=== PATIENT | female | born 1955 | race Caucasian/White ===

== ENCOUNTER 2021-08-18 14:47 | Outpatient (REF) | payer MEDICARE, MEDICAID, SELFPAY ==
--- NOTE | ~2021-08-18 | MM_ITS ---
EXAMINATION: BONE DENSITOMETRY CLINICAL INDICATION: Asymptomatic menopausal state. COMPARISON: Baseline BD dated 07/14/2011. TECHNIQUE: Using a [employer] DXA System (software version: 13.1) manufactured by [employer], dual-energy x-ray absorptiometry was performed of the spine and left hip. The images are of good technical quality. Summary results are attached. FINDINGS: AP SPINE L1-L4: Current: BMD 1.120 g/cm2, Z-score 0.9, T-score -0.5, normal, 6.3% decrease from baseline (<5% change is not significant). Baseline: BMD 1.195 g/cm2. LEFT FEMUR, NECK: Current: BMD 0.874 g/cm2, Z-score 0.2, T-score -1.2, osteopenia. Baseline: BMD 0.851 g/cm2. LEFT FEMUR, TOTAL: Current: BMD 0.939 g/cm2, Z-score 0.6, T-score -0.5, normal, 1.1% increase from baseline (<5% change is not significant). Baseline: BMD 0.929 g/cm2. IDENTIFIED RISK FACTORS: Rheumatoid arthritis, low calcium intake, menopause. HISTORY OF FRACTURE: None listed. MEDICATIONS: Calcium supplements or multivitamin, vitamin D. MM/XR DEXA axial skeleton IMPRESSION: 1. DIAGNOSIS: Osteopenia based on the lowest T-score value of -1.2 in the femoral neck applying World Health Organization criteria. 2. 10-YEAR FRACTURE RISK PREDICTION, FRAX: Major osteoporotic fracture (clinical spine, forearm, hip or shoulder) 6.1%. Hip fracture 0.6%. 3. Treatment Recommendations: NOF guidelines recommend consideration for treatment in postmenopausal women and men age 50 and older presenting with the following: -A hip or vertebral (clinical or morphometric) fracture. -T-score less than or equal to -2.5 at the femoral neck or spine after appropriate evaluation to exclude secondary causes. -Low bone mass at the hip or spine and a 10-year fracture probability by FRAX of greater than or equal to 3% for hip fracture or greater than or equal to 20% for major osteoporotic fracture based on the [place] adapted WHO algorithm. 4. Other Recommendations: All treatment decisions require clinical judgment and consideration of individual patient factors, including patient preferences, comorbidities, previous drug use, risk factors not captured in the FRAX model (e.g. frailty, falls, vitamin D deficiency, increased bone turnover, interval significant decline in bone density) and possible under or overestimation of fracture risk by FRAX. Additional medical evaluation for secondary cause of low bone mineral density may be appropriate. FUTURE SCAN RECOMMENDATION: People with diagnosed cases of osteoporosis or at high risk for fracture should have regular bone mineral density tests. For patients eligible for Medicare, routine testing is allowed once every 2 years. The testing frequency can be increased to one year for patients who have rapidly progressing disease, those who are receiving or discontinuing medical therapy to restore bone mass, or have additional risk factors.
--- NOTE | ~2021-08-18 | MM_ITS ---
EXAMINATION: MM SCREENING DIGITAL BREAST TOMOSYNTHESIS, BILATERAL CLINICAL INFORMATION: Screening. Asymptomatic. The lifetime risk of breast cancer based on the Tyrer-Cuzick Model is 3.9%. COMPARISON: Mammography: November 04, 2019 and studies dating back to July 14, 2011 TECHNIQUE: Digital breast tomosynthesis is performed in both the craniocaudal and mediolateral oblique views along with computer-aided detection (CAD). Synthesized 2D images are generated from the tomosynthesis. FINDINGS: The breasts are heterogeneously dense, which may obscure small masses (ACR BI-RADS breast composition Category c). There are no significant masses, abnormal calcifications, or other abnormalities. MM/MM tomosynthesis screening BI IMPRESSION: There are no significant changes from prior study. ASSESSMENT: BI-RADS 1: Negative RECOMMENDATION: Routine annual mammography screening. This patient's information was entered into a reminder system with a target due date for their next mammogram.
== END 2021-08-18 14:48 | disposition home or self-care (01) ==
LOC: HO.MAMMO 14:47
PROVIDERS: PCP Nurse Practitioner Family; Visit Provider Nurse Practitioner Family
DX: Z12.31 Encounter for screening mammogram for malignant neoplasm of breast (principal); Z13.820 Encounter for screening for osteoporosis; M06.9 Rheumatoid arthritis, unspecified; Z78.0 Asymptomatic menopausal state
CPT/HCPCS: 77063; 77067; 77080

== ENCOUNTER 2022-09-28 15:50 | Outpatient (REF) | payer MEDICARE, MEDICAID, SELFPAY ==
[2022-09-28 17:17] LABS: MANUAL DIFF FLAG NO
[2022-09-28 17:39] LABS: Alanine Aminotransferase 34 U/L (0-31); Albumin Level 4.1 g/dL (3.5-5.0); Alkaline Phosphatase 99 U/L (39-117); Anion Gap 12 (12-20); Aspartate Amino Transferase 25 U/L (5-31); Blood Urea Nitrogen 12 mg/dL (9-16); Calcium 9.7 mg/dL (8.4-10.2); Carbon Dioxide 24 mmol/L (22-29); Chloride 109 mmol/L (96-108); Cholesterol 240 mg/dL; Estimated Glomerular Filt Rate > 60; Glucose Random 98 mg/dL (60-115); HDL Cholesterol 57 mg/dL; LDL Cholesterol Calculated 153 mg/dl; Potassium 4.1 mmol/L (3.3-5.1); Sodium 141 mmol/L (135-145); Total Protein 7.6 g/dL (6.5-8.0); Triglycerides 151 mg/dL
[2022-09-28 17:51] LABS: Basophils Percent Auto 0.1 % (0-2); Eosinophils Absolute Auto 0.2 X10*3/uL (0.0-0.4); Eosinophils Percent Auto 2.1 % (0-4); Hematocrit 47.6 % (37.0-47.0); Hemoglobin 15.7 g/dl (12.0-16.0); Imm Gran Abs Auto 0.06 X10*3/uL (0.00-0.03); Imm Gran Pct Auto 0.8 % (0.0-0.4); Lymphocytes Absolute Auto 2.1 X10*3/uL (1.2-4.9); Lymphocytes Percent Auto 27.4 % (20-40); Mean Corpuscular Hemoglobin 30.2 pg (27.0-33.0); Mean Corpuscular Volume 91.5 fL (80.0-98.0); Mean Platelet Volume 11.7 fL (9.4-12.3); Monocytes Absolute Auto 0.7 X10*3/uL (0.1-1.2); Monocytes Percent Auto 8.7 % (2-11); Neutrophils Absolute Auto 4.7 x10*3/uL (2.0-8.3); Neutrophils Percent Auto 60.9 % (45-73); Platelet Count 223 X10*3/uL (160-400); Red Cell Distribution Width 13.1 % (11.0-16.0); White Blood Count 7.7 X10*3/uL (4.8-10.8)
[2022-09-28 17:54] LABS: Estimated Average Glucose 105 mg/dL; Hemoglobin A1c % 5.3 %
== END 2022-09-28 15:51 | disposition home or self-care (01) ==
LOC: HO.HHCL 15:50
PROVIDERS: Visit Provider Registered Nurse
DX: Z00.00 Encounter for general adult medical examination without abnormal findings (principal); E55.9 Vitamin D deficiency, unspecified; E66.9 Obesity, unspecified
CPT/HCPCS: 36415; 80053; 80061; 83036; 85025

== ENCOUNTER 2024-12-19 15:25 | Outpatient (REF) | payer MEDICARE, MEDICAID, SELFPAY | END 2024-12-19 15:26 | disposition home or self-care (01) | LOC: HO.MAMMO 15:25 | PROVIDERS: PCP General Practice; Visit Provider General Practice | DX: Z12.31 Encounter for screening mammogram for malignant neoplasm of breast (principal) | CPT/HCPCS: 77063; 77067 ==

== ENCOUNTER → 2024-12-19 15:45 | Outpatient (BNV) | payer MEDICARE, MEDICAID, SELFPAY | PROVIDERS: PCP General Practice; Visit Provider Radiology Body Imaging | DX: Z12.31 Encounter for screening mammogram for malignant neoplasm of breast (principal) | CPT/HCPCS: 77063; 77067 ==

== ENCOUNTER 2025-01-08 15:34 | Outpatient (REF) | payer MEDICARE, MEDICAID, SELFPAY ==
--- OUTSIDE RECORDS SUMMARY | 2025-01-05 15:45 | XMS_ITS | Encounter Summary ---
Author Organization [employer] Address [address] [place] [address] [address] [place] [address] Care Team Providers Care Acute Dialysis Registered Nurse Name Role Phone Althea Garvey MD Primary Care Provider [phone] Reason for Referral * Consultation (Routine) - Authorized Specialty Diagnoses / Procedures Referred By Leticia pabon Referred To Contact Family Medicine Diagnoses Neoplasm, uncertain whether benign or malignant Althea Garvey MD [address] [place] [phone] Phone: tel: fax: Referral ID Status Reason Start Date Expiration Date Visits Requested Visits Authorized [id number] Authorized Specialty Services Required 01/07/2026 1 1 Reason for Visit * Reason Comments Follow-up Encounter Details Date Type Department Care Team (Late st Contact Info) Description 01/05/2025 3:45 PM EDT Office Visit [facility] [address] [place], [place] [phone] Althea Garvey MD [address] [place] [phone] Primary hypertension (Primary Dx); Other hyperlipidemia; Screening for colon cancer; Vitamin D deficiency; Class 1 obesity due to excess calories with serious comorbidity and body mass index (BMI) of 31.0 to 31.9 in adult; Osteopenia of multiple sites; Primary insomnia; Neoplasm, uncertain whether benign or malignant Social History Tobacco Use Types Packs/Day Years Used Date Smoking Tobacco: Never Passive Smoke Exposure: Never Smokeless Tobacco: Never Depression Answer Date Recorded Patient Health Questionnaire-9 Score 2 03/24/2024 Patient Health Questionnaire-9 Score 2 03/24/2024 Last PHQ-9: Questionnaire Data Not on file 0 03/24/2024 Housing Stability Answer Date Recorded What is your housing situation today? I have alison norton 03/24/[address] you li ve. Do you have problems with any of the following? None of the above 03/24/2024 Food Insecurity Answer Date Recorded Within the past 12 months, y ou worried that your food would run out before you got money to buy more: Never True 03/24/2024 Within the past 12 months,th e food you bought just didn't last and you didn't have enough money to get more: Not on file Transportation Answer Date Recorded In the past 12 months, has l ack of transportation kept you from medical appts, meetings, work or from getting things needed for daily living? No 03/24/2024 Utilities Answer Date Recorded In the past 12 months, has t he electric, gas, oil or water company threatened to shut off services in your home? No 03/24/2024 Depression Answer Date Recorded Patient Health Questionnaire-2 Score 0 03/24/2024 Internet Access Answer Date Recorded Internet Access Q1 Yes 03/24/2024 Internet Access Q2 Not on file 03/24/2024 Comments Unknown Sex and Gender Information Value Date Recorded Sex Assigned at Female 01/09/2022 10:17 AM EDT Legal Sex Female 10:17 AM EDT Gender Identity Female 01/09/2022 10:17 AM EDT Sexual Orientation Straight 01/09/2022 10 :17 AM EDT documented as of this encounter Last Filed Vital Signs Vital Sign Reading Time Taken Comments Blood Pressure 140/80 01/05/2025 4:09 PM EDT Pulse 88 01/05/2025 4:09 PM EDT Temperature 36.3 C (97.4 F) 01/05/2025 4:09 PM EDT Respiratory Rate 20 01/05/2025 4:09 PM EDT Oxygen Saturation 98% 01/05/2025 4:09 PM EDT Inhaled Oxygen Concentration - - Weight 75 kg (165 lb 6.4 oz) 01/05/2025 4:09 PM EDT Height 154.9 cm (5' 1 ) 01/05/2025 4:09 PM EDT Body Mass Index 31.25 01/05/2025 4:09 PM EDT documented in this encounter Progress Notes * Alhtea Garvey MD - 01/05/2025 3:45 PM EDT SUBJECTIVE: Angela Sánchez is a 69 y.o. female who presents for chronic disease management. Denies recent illness, ER visit, or hospitalization. Acute Concerns: Moved into 2 bedroom apt and is feeling very good there Refer for midback excision of skin lesion Chronic Conditions and Plans: HTN On Olmesartan 20mg daily BPs at home <140/90 asymtpatomatic Allergies Takes Claritin 10mg daily Has Ketotifen and Flonase as well Allergic to pollen and trees Insomnia Melatonin 5-10mg nightly prn Vit D def On daily repletion Health maintenance: Imms: PCV20, Dtap, COVID Pap Smear: 08/24/2021, NILM HPV neg. No further screening necessary Mammogram: 08/18/21 BIRADS 1; 12/2024 Mammo Birads 0: Additional Imaging required This examination should not preclude the clinical evaluation of a suspicious palpable abnormality. BMD: Performed 08/18/21. DIAGNOSIS: Osteopenia based on the lowest T-score value of -1.2 in the femoral neck applying World Health Organization criteria. Taking Calcium + Vit D. Colonoscopy: No records, needs colon cancer screening. Cologuard ordered _01/07/25) Lung cancer: Never smoker Eye: [employer] vision Dental: [facility] dental Patient Active Problem List Diagnosis Date Noted Primary hypertension 01/07/2025 Health care maintenance 09/28/2022 Primary insomnia 03/09/2022 Environmental and seasonal allergies 06/04/2018 Class 1 obesity due to excess calories with serious comorbidity and body mass index (BMI) of 31.0 to 31.9 in adult 06/04/2018 Vitamin D deficiency 01/19/2017 Hyperlipidemia 09/19/2013 Osteopenia 07/08/2012 Surgical History[1] Social History Social History Narrative Not on file Review of Systems Constitutional: Negative. Respiratory: Negative. Cardiovascular: Negative. Gastrointestinal: Negative. Musculoskeletal: Negative. Skin: Positive for rash. OBJECTIVE: Vitals: 01/05/25 1551 01/05/25 1609 BP: 136/75 (!) 140/80 BP Location: Left arm Patient Position: Sitting BP Cuff Size: Large adult Pulse: 88 Resp: 20 Temp: 97.4 ??F (36.3 ??C) TempSrc: Oral SpO2: 98% Weight: 165 lb 6.4 oz (75 kg) Height: 5' 1 (1.549 m) Physical Exam Vitals and nursing note reviewed. Constitutional: Appearance: Normal appearance. HENT: Head: Normocephalic and atraumatic. Cardiovascular: Rate and Rhythm: Normal rate and regular rhythm. Pulses: Normal pulses. Heart sounds: Normal heart sounds. Pulmonary: Effort: Pulmonary effort is normal. Breath sounds: Normal breath sounds. Skin: General: Skin is warm and dry. Comments: 2 cm raised plaque with irregular borders and varigated color on midback with warty supralesions Neurological: General: No focal deficit present. Mental Status: She is alert and oriented to person, place, and time. Psychiatric: Mood and Affect: Mood normal. Behavior: Behavior normal. ASSESSMENT/PLAN Problem List Items Addressed This Visit Hyperlipidemia Class 1 obesity due to excess calories with serious comorbidity and body mass index (BMI) of 31.0 to 31.9 in adult Relevant Orders Comprehensive Metabolic Panel Lipid Panel, Standard CBC auto differential Osteopenia Primary insomnia Vitamin D deficiency Primary hypertension - Primary Current Assessment & Plan Maintenance: Olmesartan 20mg BMP: Lab Results Component Value Date CREATININE 0.79 09/28/2022 Lipid Panel: Lab Results Component Value Date CHOL 240 09/28/2022 Lab Results Component Value Date HDL 57 09/28/2022 No results found for: LDLCALC Lab Results Component Value Date TRIG 151 09/28/2022 No results found for: CHOLHDL ASCVD Risk: Calculate pending updated labs EKG: Obtain baseline at f/u - Aerobic exercise to reduce BP. Initial goal of 30 min walk 3-5x/week. Increase as tolerated. - low-sodium diet (goal: <2g/day) and heart healthy diet such as DASH to reduce BP and prevent ASCVD. - Home BP monitoring 1-2 x day with goal of <140/90. - Seek immediate medical attention for chest pain, palpitations, SOB, syncope, or sudden changes inmental status. - Do not change or discontinue current prescriptions without first consulting health care provider Other Visit Diagnoses Screening for colon cancer Relevant Orders Cologuard?? colon cancer screening Neoplasm, uncertain whether benign or malignant Relevant Orders Referral to [facility] Derm Skin Adult Follow Up: 6 months or sooner prn Allergies[2] Current Medications[3] French Translation: Provided by [facility] staff member ADWOA Rodriguez [1] History reviewed. No pertinent surgical history. [2] Allergies Allergen Reactions Garlic [3] Current Outpatient Medications: acetaminophen (Tylenol) 500 MG tablet, Take 1 tablet by mouth every 4 (four) hours., Disp: , Rfl: Calcium Carb-Cholecalciferol 600-10 MG-MCG tablet, Take 1 tablet by mouth 2 times daily., Disp: 180tablet, Rfl: 3 chlorhexidine (Peridex) 0.12 % solution, Place 15 mL into mouth between cheek and gum every 12 (twelve) hours., Disp: , Rfl: fluticasone (Flonase) 50 MCG/ACT nasal spray, Administer 1 spray into each nostril Once per day., Disp: 16 g, Rfl: 11 Ketotifen Fumarate 0.035 % solution, Administer 1 drop into affected eye(s) every 12 (twelve) hours., Disp: 10 mL, Rfl: 3 loratadine (Claritin) 10 MG tablet, TAKE 1 TABLET BY MOUTH AT BEDTIME IF NEEDED FOR ALLERGIES, Disp: 90 tablet, Rfl: 3 melatonin 5 MG tablet, TAKE 1 TABLET BY MOUTH AT BEDTIME, MAY TAKE 2 TABLETS IF NEEDED. TAKE 30 TO 90 MINUTES PRIOR TO BEDTIME., Disp: 180 tablet, Rfl: 3 olmesartan (Benicar) 20 MG tablet, Take 1 tablet (20 mg) by mouth Once per day., Disp: 90 tablet, Rfl: 3 documented in this encounter Miscellaneous Notes * Assessment & Plan Note - Althea Garvey MD - 01/07/2025 10:43 AM EDT Associated Problem(s): Primary hypertension Maintenance: Olmesartan 20mg BMP: Lab Results Component Value Date CREATININE 0.79 09/28/2022 Lipid Panel: Lab Results Component Value Date CHOL 240 09/28/2022 Lab Results Component Value Date HDL 57 09/28/2022 No results found for: LDLCALC Lab Results Component Value Date TRIG 151 09/28/2022 No results found for: CHOLHDL ASCVD Risk: Calculate pending updated labs EKG: Obtain baseline at f/u - Aerobic exercise to reduce BP. Initial goal of 30 min walk 3-5x/week. Increase as tolerated. - low-sodium diet (goal: <2g/day) and heart healthy diet such as DASH to reduce BP and prevent ASCVD. - Home BP monitoring 1-2 x day with goal of <140/90. - Seek immediate medical attention for chest pain, palpitations, SOB, syncope, or sudden changes inmental status. - Do not change or discontinue current prescriptions without first consulting health care provider documented in this encounter Plan of Treatment Scheduled Orders Name Type Priority Associated Diagnoses Orde r Schedule Comprehensive Metabolic Panel Lab Routine Class 1 obesity due to excess calories with serious comorbidity and body mass index (BMI) of 31.0 to 31.9 in adult Expected: 01/05/2025 (Approximate), Expires: 01/05/2026 Lipid Panel, Standard Lab Routine Class 1 obesity due to excess calories with serious comorbidity and body mass index (BMI) of 31.0 to 31.9 in adult Expected: 01/05/2025 (Approximate), Expires: 01/05/2026 Cologuard colon cancer screening Lab Routine Screening for colon cancer Ordered: 01/07/2025 Scheduled Referrals Name Type Priority Associated Diagnoses Orde r Schedule Referral to [facility] Derm Skin Adult Outpatient Referral Routine Neoplasm, uncertain whether benign or malignant Expected: 01/07/2025 (Approximate), Expires: 01/07/2026 documented as of this encounter Procedures Procedure Name Priority Date/Time Associated Diagnosis Comments CBC WITH AUTO DIFFERENTIAL Routine 01/08/2025 1:39 PM EDT Class 1 obesity due to excess calories with serious comorbidity and body mass index (BMI) of 31.0 to 31.9 in adult documented in this encounter Results * (ABNORMAL) CBC auto differential (01/08/2025 1:39 PM EDT) White Blood Count 7.4 4.8 - 10.8 X10*3/uL [facility] Red Blood Count 4.82 4.20 - 5.50 X10*6/uL [facility] Hemoglobin 14.3 12.0 - 16.0 g/dl [facility] Hematocrit 43.9 37.0 - 47.0 % [facility] Mean Corpuscular Volume 91.1 80.0 - 98.0 fL [facility] Mean Corpuscular Hemoglobin 29.7 27.0 - 33.0 pg [facility] Mean Corpuscular HGB Conc 32.6 31.0 - 35.0 g/dl [facility] Red Cell Distribution Width 13.0 11.0 - 16.0 % [facility] Platelet Count 213 160 - 400 X10*3/uL [facility] Mean Platelet Volume 11.4 9.4 - 12.3 fL [facility] Neutrophils Percent Auto 44.3(L) 45 - 73 % [facility] Imm Gran Pct Auto 0.3 0.0 - 0.4 % [facility] Lymphocytes Percent Auto 43.7(H) 20 - 40 % [facility] Monocytes Percent Auto 8.7 2 - 11 % [facility] Eosinophils Percent Auto 2.6 0 - 4 % [facility] Basophils Percent Auto 0.4 0 - 2 % [facility] NRBC Pct Auto 0.0 0.0 - 0.2 /100WBC [facility] Neutrophils Absolute Auto 3.3 2.0 - 8.3 x10*3/uL [facility] Imm Gran Abs Auto 0.02 0.00 - 0.03 X10*3/uL [facility] Lymphocytes Absolute Auto 3.2 1.2 - 4.9 X10*3/uL [facility] Monocytes Absolute Auto 0.6 0.1 - 1.2 X10*3/uL [facility] Eosinophils Absolute Auto 0.2 0.0 - 0.4 X10*3/uL [facility] Basophils Absolute Auto 0.0 0.0 - 0.2 X10*3/uL [facility] NRBC Abs Auto 0.000 0.0 - 0.012 X10*3/uL [facility] Blood Venous blood specimen / Unknown 01/08/2025 1:39 PM EDT 01/08/2025 4:07 PM EDT Althea Garvey MD LAB BLOOD ORDERABLES Final Res ult [facility] [address] [place] [phone] documented in this encounter Visit Diagnoses Diagnosis Primary hypertension- Primary Unspecified essential hypertension Other hyperlipidemia Screening for colon cancer Special screening for malignant neoplasms, colon Vitamin D deficiency Class 1 obesity due to excess calories with serious comorbidity and body mass index (BMI) of 31.0 to 31.9 in adult Osteopenia of multiple sites Primary insomnia Persistent disorder of initiating or maintaining sleep Neoplasm, uncertain whether benign or malignant documented in this encounter Additional Health Concerns Assessment Noted Time PHQ-9 Depression Total Score: 2 03/24/19 25 1:18 PM EST documented as of this encounter Care Teams Acute Dialysis Registered Nurse Relationship Specialty Start Date End Date Althea Garvey MD [address] [place] [phone] PCP - General Family Medicine 12/19/22 documented as of this encounter
[2025-01-08 16:15] LABS: MANUAL DIFF FLAG NO
[2025-01-08 16:19] LABS: Hematocrit 43.9 % (37.0-47.0); Hemoglobin 14.3 g/dl (12.0-16.0); Imm Gran Abs Auto 0.02 X10*3/uL (0.00-0.03); Imm Gran Pct Auto 0.3 % (0.0-0.4); Lymphocytes Absolute Auto 3.2 X10*3/uL (1.2-4.9); Mean Corpuscular HGB Conc 32.6 g/dl (31.0-35.0); Mean Corpuscular Hemoglobin 29.7 pg (27.0-33.0); Mean Corpuscular Volume 91.1 fL (80.0-98.0); NRBC Abs Auto 0.000 X10*3/uL (0.0-0.012); NRBC Pct Auto 0.0 /100WBC (0.0-0.2); Platelet Count 213 X10*3/uL (160-400); Red Blood Count 4.82 X10*6/uL (4.20-5.50); White Blood Count 7.4 X10*3/uL (4.8-10.8)
--- OUTSIDE RECORDS SUMMARY | 2025-01-08 18:03 | XMS_ITS | Clinical Summary ---
Author Organization [employer] Address [address] [facility] 7t [place] [address] Care Team Providers Care Equine Dentist Name Role Phone Althea Garvey MD Primary Care Provider [phone] Allergies Active Allergy Reactions Criticality Noted Date Comments Garlic 03/09/2022 Medications chlorhexidine (Peridex) 0.12 % solution Place 15 mL into mouth between cheek and gum every 12 (twelve) hours. 1 Active acetaminophen (Tylenol) 500 MG tablet Take 1 tablet by mouth every 4 (four) hours. 1 Active olmesartan (Benicar) 20 MG tabletIndications :Elevated blood-pressure reading without diagnosis of hypertension Take 1 tablet (20 mg) by mouth Once per day. 90 tablet 3 5 03/24/19 26 Active loratadine (Claritin) 10 MG tabletIndications :Environmental and seasonal allergies TAKE 1 TABLET BY MOUTH AT BEDTIME IF NEEDED FOR ALLERGIES 90 tablet 3 5 Active melatonin 5 MG tabletIndications :Primary insomnia TAKE 1 TABLET BY MOUTH AT BEDTIME, MAY TAKE 2 TABLETS IF NEEDED. TAKE 30 TO 90 MINUTES PRIOR TO BEDTIME. 180 tablet 3 5 Active Ketotifen Fumarate 0.035 % solution Administer 1 drop into affected eye(s) every 12 (twelve) hours. 10 mL 3 5 Active Calcium Carb-Cholecalcife rol 600-10 MG-MCG tablet Take 1 tablet by mouth 2 times daily. 180 tablet 3 5 Active fluticasone (Flonase) 50 MCG/ACT nasal spray Administer 1 spray into each nostril Once per day. 16 g 11 5 Active Active Problems Problem Noted Date Diagnosed Date Primary hypertension 01/07/2025 Assessment & Plan (01/07/2025 10:43 AM EDT): Maintenance: Olmesartan 20mg BMP: Lab Results Component [...] pain, palpitations, SOB, syncope, or sudden changes in mental status. - Do not change or discontinue current prescriptions without first consulting health care provider Health care maintenance 09/28/2022 Overview (10/06/2022): Routine Health Maintenance: Immunizations: Due shingles #2 vaccine, Hep B booster dose 1 HIV: Nonreactive 08/24/21 Hep C: Nonreactive 08/24/21 Hepatitis B: Nonreactive surface antibodies 08/24/21. Recommend booster vaccine series Pap Smear: 08/24/2021, NILM HPV neg. No further screening necessary Mammogram: 08/18/21 BIRADS 1, annual screening. Needs 2022 imaging BMD: Performed 08/18/21. DIAGNOSIS: Osteopenia based on the lowest T-score value of -1.2 in the femoral neck applying World Health Organization criteria. Taking Calcium + Vit D. Refill sent. Continue supplement Colonoscopy: No records, needs colon cancer screening. Discuss at f/u Lung cancer: Never smoker Eye: 2 years ago [facility] Dental: [facility] dental Primary insomnia 03/09/2022 Environmental and seasonal allergies 06/04/2018 Class 1 obesity due to exces s calories with serious comorbidity and body mass index (BMI) of 31.0 to 31.9 in adult 06/04/2018 Vitamin D deficiency 01/19/2017 Hyperlipidemia 09/19/2013 Osteopenia 07/08/2012 Resolved Problems Problem Noted Date Diagnosed Date Resolved Date Elevated blood-pressure read ing without diagnosis of hypertension 06/04/2018 01/07/2025 Overview (10/06/2022): BP was 142/97. Recheck close to first measurement BP also elevated 06/13/22 Assessment & Plan (10/06/2022 12:19 AM EDT): BP was 142/97. Recheck close to first measurement, 138/102 Will Rx Olmesartan 20 mg daily Educated pt to keep checking BP at home ED precautions: Dizziness, syncope (hypotension; order headache, chest pain, unilateral weakness, facial droop, SOB RTC 2 wk for RN BP visit Encounters Date Type Department Care Team Description 01/05/2025 3:45 PM EDT Office Visit [facility] [address] [place] [phone] Althea Garvey MD Primary hypertension (Primary Dx); Other hyperlipidemia; Screening for colon cancer; Vitamin D deficiency; Class 1 obesity due to excess calories with serious comorbidity and body mass index (BMI) of 31.0 to 31.9 in adult; Osteopenia of multiple sites; Primary insomnia; Neoplasm, uncertain whether benign or malignant 01/05/2025 Travel 01/02/2025 Telephone [facility] [address] [place] [address] [phone] Althea Garvey MD chart prep 12/19/2024 Orders Only [facility] [address] [place] [phone] Althea Garvey MD from Last 3 Months Immunizations Immunization Administration Dates Next Due Hep B, adult 09/28/2022 Social History Tobacco Use Types Packs/Day Years Used Date Smoking Tobacco: Never Passive Smoke Exposure: Never Smokeless Tobacco: Never Tobacco Cessation:Counseling Given: Not Answered Depression Answer Date Recorded Patient Health Questionnaire-9 Score 2 03/24/2024 Patient Health Questionnaire-9 Score 2 03/24/2024 Last PHQ-9: Questionnaire Data Not on file 0 03/24/2024 Housing Stability Answer Date Recorded What is your housing situation today? I have alison sing 03/24/[address] you li [...] Orientation Straight 01/09/2022 10 :17 AM EDT Last Filed Vital Signs Vital Sign Reading [...] Mass Index 31.25 01/05/2025 4:09 PM EDT Plan of Treatment Health Maintenance Due Date Last Done Comments CT Colonography 1955 Colonoscopy 1955 Colorectal Cancer Screening 1955 FIT DNA/Cologuard 1955 FIT 1955 FOBT 1955 Sigmoidoscopy 1955 Alcohol/Substance Use Screening 1967 Pneumococcal Vaccine: 50+ Years (2 of 2 - PCV) 08/24/2022 08/24/2021 SDOH Screening 09/29/2023 09/28/2022 DTaP/Tdap/Td Vaccines (2 - Td or Tdap) 10/29/2024 10/29/2014, 08/22/2005 COVID-19 Vaccine ( season) 2024 06/10/2021, 06/21/2020, 05/24/2020 Depression Screening 03/24/2025 03/24/2024, 03/24/19 Mammogram 12/19/2025 12/19/2024, 06/0 11/2021, 08/18/2021, Additional history exists Tobacco Screening 01/07/2026 01/07/2025 Lipid Panel 09/29/2027 09/28/2022, 08/24/2021 RSV Patients and Patients Aged 60 years or older (1 - 1-dose 75+ series) 2030 Hepatitis C Screening Completed 08/24/2021 Hepatitis B Vaccines Completed 09/28/2022, 07/08/2012, 08/01/2011, Additional history exists Zoster Vaccines Completed 07/06/2023, 09/10, 01/19/2017 Influenza Vaccine Completed 11/20/2024, , 11/21/2022, Additional history exists HIB Vaccines Aged Out No longer eligi ble based on patient's age to complete this topic HPV Vaccines Aged Out No longer eligi ble based on patient's age to complete this topic Hepatitis A Vaccines Aged Out No long er eligible based on patient's age to complete this topic IPV Vaccines Aged Out No longer eligi ble based on patient's age to complete this topic Meningococcal B Vaccine Aged Out No l onger eligible based on patient's age to complete this topic Meningococcal Vaccine Aged Out No gila makayla eligible based on patient's age to complete this topic RSV under 20 months Aged Out No longe r eligible based on patient's age to complete this topic Rotavirus Vaccines Aged Out No longer eligible based on patient's age to complete this topic Procedures Procedure Name Priority Date/Time Associated Diagnosis Comments CBC WITH AUTO DIFFERENTIAL Routine 01/08/2025 1:39 PM EDT Class 1 obesity due to excess calories with serious comorbidity and body mass index (BMI) of 31.0 to 31.9 in adult BI MAMMOGRAM SCREENING TOMOSYNTHESIS BILATERAL Routine 12/19/2024 3:39 PM EDT LIPID PANEL, STANDARD Routine 09/28/2022 3:55 PM EDT Health care maintenance ZZZ HISTORICAL HEPATITIS C AB W/REFL TO HCV RNA, QN, PCR Routine 08/24/2021 10:42 AM EDT from Last 3 Months or Most Recently Relevant to Health Maintenance Results * (ABNORMAL) CBC auto differential (01/08/2025 1:39 PM EDT) White Blood Count 7.4 4.8 - 10.8 X10*3/uL [facility] Red Blood Count 4.82 4.20 - 5.50 X10*6/uL [facility] Hemoglobin 14.3 12.0 - 16.0 g/dl [facility] Hematocrit 43.9 37.0 - 47.0 % [facility] Mean Corpuscular Volume 91.1 80.0 - 98.0 fL [facility] Mean Corpuscular Hemoglobin 29.7 27.0 - 33.0 pg [facility] Mean Corpuscular HGB Conc 32.6 31.0 - 35.0 g/dl [facility] Red Cell Distribution Width 13.0 11.0 - 16.0 % [facility] Platelet Count 213 160 - 400 X10*3/uL [facility] Mean Platelet Volume 11.4 9.4 - 12.3 fL [facility] Neutrophils Percent Auto 44.3(L) 45 - 73 % [facility] Imm Gran Pct Auto 0.3 0.0 - 0.4 % [facility] Lymphocytes Percent Auto 43.7(H) 20 - 40 % [facility] Monocytes Percent Auto 8.7 2 - 11 % [facility] Eosinophils Percent Auto 2.6 0 - 4 % [facility] Basophils Percent Auto 0.4 0 - 2 % [facility] NRBC Pct Auto 0.0 0.0 - 0.2 /100WBC [facility] Neutrophils Absolute Auto 3.3 2.0 - 8.3 x10*3/uL [facility] Imm Gran Abs Auto 0.02 0.00 - 0.03 X10*3/uL [facility] Lymphocytes Absolute Auto 3.2 1.2 - 4.9 X10*3/uL [facility] Monocytes Absolute Auto 0.6 0.1 - 1.2 X10*3/uL [facility] Eosinophils Absolute Auto 0.2 0.0 - 0.4 X10*3/uL [facility] Basophils Absolute Auto 0.0 0.0 - 0.2 X10*3/uL [facility] NRBC Abs Auto 0.000 0.0 - 0.012 X10*3/uL [facility] Blood Venous blood specimen / Unknown 01/08/2025 1:39 PM EDT 01/08/2025 4:07 PM EDT us Althea Garvey MD LAB BLOOD ORDERABLES Final Res ult [facility] [address] [place] [address] [place] [phone] * BI Mammogram Screening Tomosynthesis Bilateral (12/19/2024 3:39 PM EDT) Anatomical Region Laterality Modality Breast Bilateral Mammography 12/19/2024 3:39 PM EDT Narrative 12/27/2024 3:29 PM EDT [facility] [address] [place] [address] Mammography Report Signed Patient: Angela Sánchez MR#: [id number] 2 : 1955 Acct:[id number] Age/Sex: 69 / F ADM Date: 12/19/24 Loc: HO.MAMMO Attending Dr: Althea Garvey MD Ordering Physician: Althea Garvey Results: 0Incomple te- Need Additional Imaging Evaluation Date of Service: 12/19/24 Follow Up: Additional Imagi ng Procedure(s): MM tomosynthesis screening BI Accession Number(s): [id number] cc: Althea Garvey Reason For Exam: SCREENING EXAMINATION: MM SCREENING DIGITAL BREAST TOMOSYNTHESIS, BILATERAL CLINICAL INFORMATION: Screening. Asymptomatic. COMPARISON: Comparison made to multiple prior, most recent August 18, 2021, and most remote August 09, 2012. TECHNIQUE: Digital breast tomosynthesis is performed in mediolateral oblique and craniocaudal views along with computer-aided detection (CAD). Synthesized 2D images are generated from the tomosynthesis. FINDINGS: BREAST COMPOSITION: The breasts are heterogeneously dense, which may obscure small masses. RIGHT BREAST: No significant masses, suspicious calcifications or other abnormalities are seen. LEFT BREAST: Asymmetry in the lateral breast middle depth at 10 cm from the nipple (CC 12/65), without definite correlate on the MLO view. No suspicious calcifications or other abnormalities are seen. MM/MM tomosynthesis screening BI IMPRESSION: RIGHT BREAST: Negative, no mammographic evidence of malignancy. Normal interval follow-up is recommended in 12 months. LEFT BREAST: Asymmetry in the lateral breast middle depth on the CC view. ASSESSMENT: BI-RADS: Category 0: Incomplete - Need additional Imaging Evaluation RECOMMENDATION: 1. Additional views of the left breast 2. Targeted ultrasound if warranted after review of the additional views. 3. Radiology department staff will contact the patient for additional imaging. FOLLOW-UP: Additional Imaging required This examination should not preclude the clinical evaluation of a suspicious palpable abnormality. This patient's information was entered into a reminder system with a target due date for their next mammogram. Electronically signed by: Paolo White MD 12/27/2024 03:26 PM EDT Dictated By: Paolo White MD Signed By: <Electronically signed by Paolo White MD in OV> 12/27/24 1526 DD/ 1539 TD/TT: 12/19/24 1541 Code Official: Procedure Note Donotuseinterpreter, Image - 12/27/2024 [place] [facility] [address] [place], [place] [address] Mammography Report Signed Patient: Angela Sánchez CMR#: [id number] 2 : 5Acct:[id number] Age/Sex: 69 / FADM Date: 12/19/24 Loc: HO.MAMMO Attending Dr: Althea Garvey MD Ordering Physician: Efraín Garveyults: 0Incomple te- Need Additional Imaging Evaluation Date of Service: 12/19/24Follow Up: Additional Imagi ng Procedure(s): MM tomosynthesis screening BI Accession Number(s): [id number] cc: Althea Garvey Reason For Exam: SCREENING EXAMINATION: MM SCREENING DIGITAL BREAST TOMOSYNTHESIS, BILATERAL CLINICAL INFORMATION: Screening. Asymptomatic. COMPARISON: Comparison made to multiple prior, most recent August 18, 2021, and most remote August 09, 2012. TECHNIQUE: Digital breast tomosynthesis is performed in mediolateral oblique and craniocaudal views along with computer-aided detection (CAD). Synthesized 2D images are generated from the tomosynthesis. FINDINGS: BREAST COMPOSITION: The breasts are heterogeneously dense, which may obscure small masses. RIGHT BREAST: No significant masses, suspicious calcifications or other abnormalities are seen. LEFT BREAST: Asymmetry in the lateral breast middle depth at 10 cm from the nipple (CC 12/65), without definite correlate on the MLO view. No suspicious calcifications or other abnormalities are seen. MM/MM tomosynthesis screening BI IMPRESSION: RIGHT BREAST: Negative, no mammographic evidence of malignancy. Normal interval follow-up is recommended in 12 months. LEFT BREAST: Asymmetry in the lateral breast middle depth on the CC view. ASSESSMENT: BI-RADS: Category 0: Incomplete - Need additional Imaging Evaluation RECOMMENDATION: 1. Additional views of the left breast 2. Targeted ultrasound if warranted after review of the additional views. 3. Radiology department staff will contact the patient for additional imaging. FOLLOW-UP: Additional Imaging required This examination should not preclude the clinical evaluation of a suspicious palpable abnormality. This patient's information was entered into a reminder system with a target due date for their next mammogram. Electronically signed by: Paolo White MD 12/27/2024 03:26 PM EDT Dictated By: Paolo White MD Signed By: <Electronically signed by Paolo White MD in OV> 12/27/24 1526 DD/ 1539 TD/TT: 12/19/24 1541 Code Official: Althea Garvey MD IMG BI PROCEDURES Edited Resul t - Final * Lipid Panel, Standard (09/28/2022 3:55 PM EDT) Triglycerides 151 mg/dL [facility] Comment:Desirable Triglyceri de: less than 150 mg/dLBorderline High Triglyceride 150-199 mg/dLHigh Triglyceride: 200-499 mg/dLVery High Triglyceride: greater than or equal to 5OO mg/dL Cholesterol 240 mg/dL [facility] Comment:Desirable Cholestero l: less than 200 mg/dLBorderline High Cholesterol: 200-239 mg/dLHigh Cholesterol: greater than 239 mg/dL LDL Cholesterol Calculated 153 mg/dl [facility] Comment:Desirable LDL: less than 100 mg/dLNear Optimal/Above Optimal LDL: 110- 129 mg/dLBorderline High LDL: 130-159 mg/dLHigh LDL: 160-189 mg/dLVery High LDL: greater than or equal to 190 mg/dL HDL Cholesterol 57 mg/dL [facility] Comment:Desirable HDL: great er than 40 mg/dL Note: This HDL assay may give artificially low results in patients with liver disease. Blood Venous blood specimen / Unknown 09/28/2022 3:55 PM EDT 09/28/2022 5:15 PM EDT us Lorrie Zendejas RENTAL CLERK [employer]IP[employer] LAB BLOOD ORDERABLES Final Result [facility] [address] [place] [phone] * HEPATITIS C AB W/REFL TO HCV RNA, QN, PCR (08/24/2021 10:42 AM EDT) HEPATITIS C ANTIBODY NON-REACT JAYLEN NON-REACT JAYLEN [facility] INDEX 0.06 <1.00 [facility] Comment: HCV antibody was non-reactive. There is no laboratory evidence of HCV infection. In most cases, no further action is required. However, if recent HCV exposure is suspected, a test for HCV RNA (test code 65308) is suggested. For additional information please refer to http://education.Slide/faq/ARH75m2 (This link is being provided for informational/ educational purposes only.) 08/24/2021 10:4 2 AM EDT us Annelise MCCURDYP HISTORICAL/NON ORDERABLE LABS Final Result [facility] [address] from Last 3 Months or Most Recently Relevant to Health Maintenance Insurance [facility] STANDARD MEDICARE Care Teams Equine Dentist Relationship Specialty Start Date End Date Althea Garvey MD [address] [place] [phone] PCP - General Family Medicine 12/19/22
--- OUTSIDE RECORDS SUMMARY | 2025-01-08 18:03 | XMS_ITS | Encounter Summary ---
Author Organization [employer] Address [address] [facility] 7t [place] [address] Care Team Providers Care School Laboratory Technician Name Role Phone Althea Garvey MD Primary Care Provider [phone] Reason for Visit * Reason Onset Date Comments Medication Question 06/10/2024 Call Back Request 06/10/2024 Encounter Details Date Type Department Care Team ([facility] st Contact Info) Description 06/10/2024 Telephone [facility] [address] [place] [address] Althea Garvey MD [address] [place], [place] [phone] Medication Question; Call Back Request Social History Tobacco Use Types Packs/Day Years [...] AM EDT documented as of this encounter Miscellaneous Notes * Telephone Encounter - Bushra Singh RN - 06/10/2024 3:24 PM EDT TC returned to pt., reports cologuard kit was never received in the mail since order placed in March. Would like to complete test. Can we place order again? * Telephone Encounter - Herve Guzman - 06/10/2024 2:41 PM EDT Tc from pt stating that she would like to get a coloscopy test done. Pt states that last time she did it she ended up being able to do it in her house. Pt was wondering if she can do that again. Contact pt at [phone] documented in this encounter Plan of Treatment Not on file documented as of this encounter Visit Diagnoses Not on filedocumented in this encounter Additional Health Concerns Assessment Noted Time PHQ-9 Depression Total Score: 2 03/24/19 25 1:18 PM EST documented as of this encounter Care Teams School Laboratory Technician Relationship Specialty Start Date End Date Althea Garvey MD [address] [place] [phone] PCP - General Family Medicine 12/19/22 documented as of this encounter
--- OUTSIDE RECORDS SUMMARY | 2025-01-08 18:03 | XMS_ITS | Encounter Summary ---
Author Organization [employer] Address [address] [facility] [address] 7[address] [place] [address] Care Team Providers Care Shooter Helper Name Role Phone Althea Garvey MD Primary Care Provider [phone] Encounter Details Date Type Department Care Team (Latest Contact Info) Description 01/05/2025 Travel Social History Tobacco Use Types Packs/Day Years [...] AM EDT documented as of this encounter Plan of Treatment Not on file documented as of this encounter Visit Diagnoses Not on filedocumented in this encounter Additional Health Concerns Assessment Noted Time PHQ-9 Depression Total Score: 2 03/24/19 25 1:18 PM EST documented as of this encounter Care Teams Shooter Helper Relationship Specialty Start Date End Date Althea Garvey MD [address] [place] [phone] PCP - General Family Medicine 12/19/22 documented as of this encounter
--- OUTSIDE RECORDS SUMMARY | 2025-01-08 18:03 | XMS_ITS | Clinical Summary ---
Author Organization [facility] Address [address] [place] [address] Phone Care Team Providers Care Sebd Teacher Name Role Phone Althea Garvey MD Primary Care Provider [phone] Allergies No known active allergies Social History Tobacco Use Types Packs/Day Years Used Date Smoking Tobacco: Never Assessed Comments Unknown Sex and Gender Information Value Date Recorded Sex Assigned at Not on file Legal Sex Female 10:47 PM EST Gender Identity Not on file Sexual Orientation Not on file Last Filed Vital Signs Vital Sign Reading Time Taken Comments Blood Pressure 137/78 05/27/2024 10:10 PM EDT Pulse 71 05/27/2024 10:10 PM EDT Temperature 36.9 C (98.4 F) 05/27/2024 5:33 PM EDT Respiratory Rate 18 05/27/2024 10:10 PM EDT Oxygen Saturation 95% 05/27/2024 10:10 PM EDT Inhaled Oxygen Concentration - - Weight 75.4 kg (166 lb 3.2 oz) 05/27/2024 5:33 P M EDT Height 154.9 cm (5' 1 ) 05/27/2024 5:33 PM EDT Body Mass Index 31.4 05/27/2024 5:33 PM EDT Plan of Treatment Health Maintenance Due Date Last Done Comments Colorectal Cancer Screening: Colonoscopy 1955 Pneumococcal Vaccine: 50+ Years (2 of 2 - PCV) 08/24/2022 08/24/2021 Breast Cancer Screening 08/19/2023 08/18/2021 Depression Screening 03/12/2024 Falls Risk Assessment 05/28/2024 Hepatitis C Screening 05/28/2024 Medicare Annual Wellness Visit 05/28/2024 Osteoporosis Screening (Bone Density Screening) 05/28/2024 Social Influencers of Health Screening 05/28/2024 DTaP,Tdap,and Td Vaccines (3 - Td or Tdap) 10/29/2024 10/29/2014, 08/22/2005 COVID-19 Vaccine (4 - season) 2024 06/10/2021, 06/21/2020, 05/24/2020 Influenza Vaccine (#1) 2024 , 11/21/2022, 12/04/2021, Additional history exists Cholesterol Screening (Lipid Panel) 09/29/2027 09/28/2022 RSV Immunization Adult Patients (1 - 1-dose 75+ series) 2030 Hepatitis B Vaccines Completed 09/28/2022, 07/08/2012, 08/01/2011, Additional history exists Zoster Vaccines Completed 07/06/2023, 09/10, 01/19/2017 HIB Vaccines Aged Out No longer eligi [...] on patient's age to complete this topic MMR Vaccines Aged Out No longer eligi ble based on patient's age to complete this topic Meningococcal ACWY Vaccine Aged Out N o longer eligible based on patient's age to complete this topic Meningococcal B Vaccine Aged Out No l onger eligible based on patient's age to complete this topic RSV Immunization Patients Under 20 months Aged Out No longer eligible based on patient's age to complete this topic Varicella Vaccines Aged Out No longer eligible based on patient's age to complete this topic Insurance [place]IC[place] Care Teams Sebd Teacher Relationship Specialty Start Date End Date Althea Garvey MD [address] [place] [phone] PCP - General Can Runner 05/27/24
--- OUTSIDE RECORDS SUMMARY | 2025-01-08 18:03 | XMS_ITS | Encounter Summary ---
Author Organization [employer] Address [address] [facility] 7t [place] [address] Care Team Providers Care Manager Financial Planning Name Role Phone Althea Garvey MD Primary Care Provider [phone] Encounter Details Date Type Department Care Team (Late st Contact Info) Description 06/10/2024 Orders Only [facility] [address] [place], [place] [phone] Althea Garvey MD [address] [place], [place] [phone] Screening for colon cancer (Primary Dx) Social History Tobacco Use Types Packs/Day Years Used Date Smoking Tobacco: Never Passive Smoke Exposure: Never Smokeless Tobacco: Never Depression Answer Date Recorded Patient Health Questionnaire-9 Score 2 03/24/2024 Patient Health Questionnaire-9 Score 2 03/24/2024 Last PHQ-9: Questionnaire Data Not on file 0 03/24/2024 Housing Stability Answer Date Recorded What is your housing situation today? I have alisongiovani norton 03/24/[address] you [...] documented as of this encounter Visit Diagnoses Diagnosis Screening for colon cancer- Primary Special screening for malignant neoplasms, colon documented in this encounter Additional Health Concerns Assessment Noted Time PHQ-9 Depression Total Score: 2 03/24/19 25 1:18 PM EST documented as of this encounter Care Teams Manager Financial Planning Relationship Specialty Start Date End Date Althea Garvey MD [address] [place] [phone] PCP - General Family Medicine 12/19/22 documented as of this encounter
--- OUTSIDE RECORDS SUMMARY | 2025-01-08 18:03 | XMS_ITS | Encounter Summary ---
Author Organization [employer] Address [address] [facility] 7t [place] [address] Care Team Providers Care Senior Laboratory Technician Name Role Phone Althea Garvey MD Primary Care Provider [phone] Encounter Details Date Type Department Care Team (Late st Contact Info) Description 07/24/2023 Telephone [facility] [address] [place], [place] [phone] Althea Garvey MD [address] [place], [place] [phone] Social History Tobacco Use Types Packs/Day Years Used Date Smoking Tobacco: Never Passive Smoke Exposure: Never Smokeless Tobacco: Never Depression Answer Date Recorded Patient Health Questionnaire-9 Score 0 09/28/2022 Housing Stability Answer Date Recorded What is your housing situation today? I have alison norton 01/20/[address] you li ve. Do you have problems with any of the following? None of the above 01/20/2023 Food Insecurity Answer Date Recorded Within the past 12 months, y ou worried that your food would run out before you got money to buy more: Never True 01/20/2023 Within the past 12 months,th e food you bought just didn't last and you didn't have enough money to get more: Never True 01/2023 Transportation Answer Date Recorded In the past 12 months, has l ack of transportation kept you from medical appts, meetings, work or from getting things needed for daily living? No 01/20/2023 Utilities Answer Date Recorded In the past 12 months, has t he electric, gas, oil or water company threatened to shut off services in your home? No 01/20/2023 Depression Answer Date Recorded Patient Health Questionnaire-2 Score 0 09/28/2022 Comments Unknown Sex and Gender Information Value [...] Assessment Noted Time PHQ-9 Depression Total Score: 0 09/29/19 3:05 PM EDT documented as of this encounter Care Teams Senior Laboratory Technician Relationship Specialty Start Date End Date Althea Garvey MD [address] [place] [phone] PCP - General Family Medicine 12/19/22 documented as of this encounter
[2025-01-08 18:06] LABS: Alanine Aminotransferase 25 U/L (0-31); Albumin Level 4.2 g/dL (3.5-5.0); Alkaline Phosphatase 83 U/L (39-117); Anion Gap 12 (12-20); Aspartate Amino Transferase 23 U/L (5-31); Blood Urea Nitrogen 15 mg/dL (9-16); Calcium 9.2 mg/dL (8.4-10.2); Carbon Dioxide 23 mmol/L (22-29); Chloride 109 mmol/L (96-108); Cholesterol 211 mg/dL (<200); Estimated Glomerular Filt Rate > 60; HDL Cholesterol 52 mg/dL (>40); Potassium 3.6 mmol/L (3.3-5.1); Sodium 140 mmol/L (135-145); Total Protein 7.2 g/dL (6.5-8.0); Triglycerides 190 mg/dL (<150)
== END 2025-01-08 15:35 | disposition home or self-care (01) ==
LOC: HO.HHCL 15:34
PROVIDERS: PCP General Practice; Visit Provider General Practice
DX: E66.9 Obesity, unspecified (principal)
CPT/HCPCS: 36415; 80053; 80061; 85025

== ENCOUNTER → 2025-01-19 15:00 | Outpatient (BNV) | payer MEDICARE, MEDICAID, SELFPAY | PROVIDERS: PCP General Practice; Visit Provider Radiology Body Imaging | DX: R92.8 Other abnormal and inconclusive findings on diagnostic imaging of breast (principal) | CPT/HCPCS: 77065; G0279 ==

== ENCOUNTER 2025-01-19 15:01 | Outpatient (REF) | payer MEDICARE, MEDICAID, SELFPAY ==
--- NOTE | ~2025-01-19 | MM_ITS ---
EXAMINATION(S): MM DIAGNOSTIC DIGITAL BREAST TOMOSYNTHESIS, LEFT CLINICAL INFORMATION: Callback from screening for left breast asymmetry in the lateral breast on CC view middle depth at 10 cm from the nipple. COMPARISON: December 19, 2024 TECHNIQUE: Digital breast tomosynthesis is performed in full-field CC and ML 90 degrees along with computer-aided detection (CAD). Synthesized 2D images are generated from the tomosynthesis. Spot compression tomosynthesis were obtained on the CC plane. FINDINGS: BREAST COMPOSITION: The breasts are heterogeneously dense, which may obscure small masses. RIGHT BREAST: Previously seen asymmetry does not persist on today's images and most likely represented overlapping fibroglandular breast tissue. MM/MM tomosynthesis added views L IMPRESSION: RIGHT BREAST: Negative, no mammographic evidence of malignancy. Normal interval follow-up is recommended in 12 months. ASSESSMENT: BI-RADS: Category 1: Negative RECOMMENDATION: 1 year F/U Results were provided to the patient at time of visit by the technologist. This patient's information was entered into a reminder system with a target due date for their next mammogram. Electronically signed by: Paolo White MD 01/19/2025 03:39 PM [facility]
--- OUTSIDE RECORDS SUMMARY | 2025-01-19 17:13 | XMS_ITS | Clinical Summary ---
Author Organization [employer] Address 75 [facility] 7t [place] [address] Care Team Providers Care Bit Setter Name Role Phone Althea Garvey MD Primary Care Provider Allergies Active Allergy Reactions Criticality Noted Date [...] Eye: 2 years ago [facility] Dental: [facility] dental Primary insomnia 03/09/2022 Environmental and [...] Encounters Date Type Department Care Team Description 01/19/2025 Orders Only [address] [address] Althea Garvey MD 01/05/2025 3:45 PM EDT Office Visit [address] [address] Althea Garvey MD Primary hypertension (Primary Dx); Other hyperlipidemia; Screening for colon cancer; Vitamin D deficiency; Class 1 obesity due to excess calories with serious comorbidity and body mass index (BMI) of 31.0 to 31.9 in adult; Osteopenia of multiple sites; Primary insomnia; Neoplasm, uncertain whether benign or malignant 01/05/2025 Travel 01/02/[address] [address] Althea Garvey MD chart prep 12/19/2024 Orders Only [address] [address] Althea Garvey MD from Last 3 Months [...] 06/21/2020, 05/24/2020 Depression Screening 03/24/2025 03/24/2024, 03/24/19 25 Mammogram 12/19/2025 12/19/2024, 06/0 11/2021, 08/18/2021, Additional history exists Tobacco Screening 01/07/2026 01/07/2025 Lipid Panel 01/08/2030 01/08/2025, 09/10, 08/24/2021 RSV Patients and Patients Aged 60 years or older (1 - 1-dose 75+ series) 2030 Hepatitis C Screening Completed 08/24/2021 Hepatitis B Vaccines Completed 09/28/2022, 07/08/2012, 08/01/2011, Additional history exists Zoster Vaccines Completed 07/06/2023, 072 03/2022, 01/19/2017 Influenza Vaccine Completed 11/20/2024, , 11/21/2022, [...] Procedure Name Priority Date/Time Associated Diagnosis Comments BI MAMMOGRAM DIAGNOSTIC TOMOSYNTHESIS ADDED VIEW LEFT Routine 01/19/2025 3:03 PM EST CBC WITH AUTO DIFFERENTIAL Routine 01/08/2025 1:39 PM EDT Class 1 obesity due to excess calories with serious comorbidity and body mass index (BMI) of 31.0 to 31.9 in adult LIPID PANEL, STANDARD Routine 01/08/2025 1:39 PM EDT Class 1 obesity due to excess calories with serious comorbidity and body mass index (BMI) of 31.0 to 31.9 in adult COMPREHENSIVE METABOLIC PANEL Routine 01/08/2025 1:39 PM EDT Class 1 obesity due to excess calories with serious comorbidity and body mass index (BMI) of 31.0 to 31.9 in adult BI MAMMOGRAM SCREENING TOMOSYNTHESIS BILATERAL Routine 12/19/2024 3:39 PM EDT ZZZ HISTORICAL HEPATITIS C AB W/REFL TO HCV RNA, QN, PCR Routine 08/24/2021 10:42 AM EDT from Last 3 Months or Most Recently Relevant to Health Maintenance Results * BI Mammogram Diagnostic Tomosynthesis added left (01/19/2025 3:03 PM EST) Anatomical Region Laterality Modality Breast Left Mammography 01/19/2025 3:03 PM EST Narrative 01/19/2025 3:42 PM EST [facility] [address] [place] [address] Dr. [place], [place] [address] Mammography Report Signed Patient: Angela Sánchez MR#: [id number] 2 : 1955 Acct:[id number] Age/Sex: 69 / F ADM Date: 01/19/25 Loc: HO.MAMMO Attending Dr: Althea Garvey MD Ordering Physician: Althea Garvey Results: 1Negative Date of Service: 01/19/25 Follow Up: 1 Year From Orig inal Mammogram Procedure(s): MM tomosynthesis added views L Accession Number(s): [id number] cc: Althea Garvey Reason For Exam: LT BR AV US FOR ASYMM LATERAL BR EXAMINATION(S): MM DIAGNOSTIC DIGITAL BREAST TOMOSYNTHESIS, LEFT CLINICAL INFORMATION: Callback from screening for left breast asymmetry in the lateral breast on CC view middle depth at 10 cm from the nipple. COMPARISON: December 19, 2024 TECHNIQUE: Digital breast tomosynthesis is performed in full-field CC and ML 90 degrees along with computer-aided detection (CAD). Synthesized 2D images are generated from the tomosynthesis. Spot compression tomosynthesis were obtained on the CC plane. FINDINGS: BREAST COMPOSITION: The breasts are heterogeneously dense, which may obscure small masses. RIGHT BREAST: Previously seen asymmetry does not persist on today's images and most likely represented overlapping fibroglandular breast tissue. MM/MM tomosynthesis added views L IMPRESSION: RIGHT BREAST: Negative, no mammographic evidence of malignancy. Normal interval follow-up is recommended in 12 months. ASSESSMENT: BI-RADS: Category 1: Negative RECOMMENDATION: 1 year F/U Results were provided to the patient at time of visit by the technologist. This patient's information was entered into a reminder system with a target due date for their next mammogram. Electronically signed by: Paolo White MD 01/19/2025 03:39 PM EST Dictated By: Paolo White MD Signed By: <Electronically signed by Paolo White MD in OV> 01/19/25 1539 DD/ 1503 TD/TT: 01/19/25 1517 Die Keeper: Procedure Note Donotuseinterpreter, Image - 01/19/2025 [facility] [address] [place], [place] [address] Mammography Report Signed Patient: Angela Sánchez CMR#: [id number] 2 : 5Acct:[id number] Age/Sex: 69 / FADM Date: 01/19/25 Loc: HO.MAMMO Attending Dr: Althea Garvey MD Ordering Physician: Efraín Garveyults: 1Negative Date of Service: 01/19/25Follow Up: 1 Year From Orig inal Mammogram Procedure(s): MM tomosynthesis added views L Accession Number(s): [id number] cc: Althea Garvey Reason For Exam: LT BR AV US FOR ASYMM LATERAL BR EXAMINATION(S): MM DIAGNOSTIC DIGITAL BREAST TOMOSYNTHESIS, LEFT CLINICAL INFORMATION: Callback from screening for left breast asymmetry in the lateral breast on CC view middle depth at 10 cm from the nipple. COMPARISON: December 19, 2024 TECHNIQUE: Digital breast tomosynthesis is performed in full-field CC and ML 90 degrees along with computer-aided detection (CAD). Synthesized 2D images are generated from the tomosynthesis. Spot compression tomosynthesis were obtained on the CC plane. FINDINGS: BREAST COMPOSITION: The breasts are heterogeneously dense, which may obscure small masses. RIGHT BREAST: Previously seen asymmetry does not persist on today's images and most likely represented overlapping fibroglandular breast tissue. MM/MM tomosynthesis added views L IMPRESSION: RIGHT BREAST: Negative, no mammographic evidence of malignancy. Normal interval follow-up is recommended in 12 months. ASSESSMENT: BI-RADS: Category 1: Negative RECOMMENDATION: 1 year F/U Results were provided to the patient at time of visit by the technologist. This patient's information was entered into a reminder system with a target due date for their next mammogram. Electronically signed by: Paolo White MD 01/19/2025 03:39 PM EST Dictated By: Paolo White MD Signed By: <Electronically signed by Paolo White MD in OV> 01/19/25 1539 DD/ 1503 TD/TT: 01/19/25 1517 Die Keeper: us Althea Garvey MD IMG BI PROCEDURES Edited Resul t - Final * (ABNORMAL) CBC auto differential (01/08/2025 1:39 PM EDT) White Blood Count 7.4 4.8 - 10.8 X10*3/uL [facility] Red Blood Count 4.82 4.20 - 5.50 X10*6/uL [facility] Hemoglobin 14.3 12.0 - 16.0 g/dl [facility] Hematocrit 43.9 37.0 - 47.0 % [facility] Mean Corpuscular Volume 91.1 80.0 - 98.0 fL [facility] Mean Corpuscular Hemoglobin 29.7 27.0 - 33.0 pg [facility] Mean Corpuscular HGB Conc 32.6 31.0 - 35.0 g/dl [facility] Red Cell Distribution Width 13.0 11.0 - 16.0 % [facility] Platelet Count 213 160 - 400 X10*3/uL [facility] Mean Platelet Volume 11.4 9.4 - 12.3 fL [facility] Neutrophils Percent Auto 44.3(L) 45 - 73 % [facility] Imm Gran Pct Auto 0.3 0.0 - 0.4 % [facility] Lymphocytes Percent Auto 43.7(H) 20 - 40 % [facility] Monocytes Percent Auto 8.7 2 - 11 % [facility] Eosinophils Percent Auto 2.6 0 - 4 % [facility] Basophils Percent Auto 0.4 0 - 2 % [facility] NRBC Pct Auto 0.0 0.0 - 0.2 /100WBC [facility] Neutrophils Absolute Auto 3.3 2.0 - 8.3 x10*3/uL [facility] Imm Gran Abs Auto 0.02 0.00 - 0.03 X10*3/uL [facility] Lymphocytes Absolute Auto 3.2 1.2 - 4.9 X10*3/uL [facility] Monocytes Absolute Auto 0.6 0.1 - 1.2 X10*3/uL [facility] Eosinophils Absolute Auto 0.2 0.0 - 0.4 X10*3/uL [facility] Basophils Absolute Auto 0.0 0.0 - 0.2 X10*3/uL [facility] NRBC Abs Auto 0.000 0.0 - 0.012 X10*3/uL [facility] Blood Venous blood specimen / Unknown 01/08/2025 1:39 PM EDT 01/08/2025 4:07 PM EDT Althea Garvey MD LAB BLOOD ORDERABLES Final Res ult Performing Organization Address City/[facility] Co de Phone Number [facility] [address] [place], [place] [phone] * (ABNORMAL) Lipid Panel, Standard (01/08/2025 1:39 PM EDT) Triglycerides 190(H) <150 mg/dL [facility] Comment:Desirable Triglyceri de: less than 150 mg/dLBorderline High Triglyceride 150-199 mg/dLHigh Triglyceride: 200-499 mg/dLVery High Triglyceride: greater than or equal to 5OO mg/dL Cholesterol 211(H) <200 mg/dL [facility] Comment:Desirable Cholestero l: less than 200 mg/dLBorderline High Cholesterol: 200-239 mg/dLHigh Cholesterol: greater than 239 mg/dL LDL Cholesterol Calculated 121(H) <100 mg/dL [facility] Comment:Desirable LDL: less than 100 mg/dLNear Optimal/Above Optimal LDL: 110- 129 mg/dLBorderline High LDL: 130-159 mg/dLHigh LDL: 160-189 mg/dLVery High LDL: greater than or equal to 190 mg/dL HDL Cholesterol 52 >40 mg/dL [facility] Comment:Desirable HDL: great er than 40 mg/dL Note: This HDL assay may give artificially low results in patients with liver disease. Blood Venous blood specimen / Unknown 01/08/2025 1:39 PM EDT 01/08/2025 4:07 PM EDT Althea Garvey MD LAB BLOOD ORDERABLES Final Res ult [facility] [address] [place] [address] [phone] * (ABNORMAL) Comprehensive Metabolic Panel (01/08/2025 1:39 PM EDT) Sodium 140 135 - 145 mmol/L [facility] Potassium 3.6 3.3 - 5.1 mmol/L [facility] Chloride 109(H) 96 - 108 mmol/L [facility] Carbon Dioxide 23 22 - 29 mmol/L [facility] Anion Gap 12 12 - 20 [facility] Urea Nitrogen (BUN) 15 9 - 16 mg/dL [facility] Creatinine, Serum 0.75 0.5 - 1.4 mg/dL [facility] Estimated Glomerular Filt Rate >60 [facility] Comment:Chronic Kidney Disea se: Estimated GFR < 60 mL/min/1.92i6Zvgfyl Kidney Disease: Estimated GFR < 15 mL/min/1.73m2 Glucose 87 60 - 115 mg/dL [facility] Calcium 9.2 8.4 - 10.2 mg/dL [facility] Bilirubin, Total 0.9 0.0 - 1.0 mg/dL [facility] Aspartate Amino Transferase 23 5 - 31 U/L [facility] Alanine Aminotransferase 25 0 - 31 U/L [facility] Total Protein 7.2 6.5 - 8.0 g/dL [facility] Albumin Level 4.2 3.5 - 5.0 g/dL [facility] Alkaline Phosphatase 83 39 - 117 U/L [facility] Blood Venous blood specimen / Unknown 01/08/2025 1:39 PM EDT 01/08/2025 4:07 PM EDT us Althea Garvey MD LAB BLOOD ORDERABLES Final Res ult Performing Organization Address [facility]/ZIP Co de Phone Number [facility] [address] [place] [address] [phone] * BI Mammogram Screening Tomosynthesis Bilateral (12/19/2024 3:39 PM EDT) Anatomical Region Laterality Modality Breast Bilateral Mammography 12/19/2024 3:39 PM EDT Narrative 12/27/2024 3:29 PM EDT [facility] [address] [place], [place] [address] Mammography Report Signed Patient: Angela Sánchez MR#: [id number] 2 : 1955 Acct:[id number] Age/Sex: 69 / F ADM Date: 12/19/24 Loc: HO.MAMMO Attending Dr: Althea Garvey MD Ordering Physician: Althea Garvey Results: 0Incomple te- Need Additional Imaging Evaluation Date of Service: 12/19/24 Follow Up: Additional Imagi ng Procedure(s): MM tomosynthesis screening BI Accession Number(s): [id number] cc: Althea Garvey Reason For Exam: SCREENING [...] Paolo White MD 12/27/2024 03:26 PM EDT RP Dictated By: Paolo White MD Signed By: <Electronically signed by Paolo White MD in OV> 12/27/24 1526 DD/ 1539 TD/TT: 12/19/24 1541 Die Keeper: Procedure Note Donotuseinterpreter, Image - 12/27/2024 [facility] [address] [place] [address] Mammography Report Signed Patient: Angela Sánchez CMR#: [id number] 2 : 5Acct:[id number] Age/Sex: 69 / FADM Date: 12/19/24 Loc: HO.MAMMO Attending Dr: Althea Garvey MD Ordering Physician: Efraín Garveyults: 0Incomple te- Need Additional Imaging Evaluation Date of Service: 12/19/24Follow Up: Additional Imagi ng Procedure(s): MM tomosynthesis screening BI Accession Number(s): [id number] cc: Althea Garvey Reason For Exam: SCREENING [...] Paolo White MD 12/27/2024 03:26 PM EDT RP Dictated By: Paolo White MD Signed By: <Electronically signed by Paolo White MD in OV> 12/27/24 1526 DD/ 1539 TD/TT: 12/19/24 1541 Die Keeper: Althea Garvey MD IMG BI PROCEDURES Edited Resul t - Final * HEPATITIS C AB W/REFL TO HCV RNA, QN, PCR (08/24/2021 10:42 AM EDT) HEPATITIS C ANTIBODY NON-REACT JAYLEN NON-REACT J[facility] INDEX 0.06 <1.00 [facility] Comment: HCV antibody was non-reactive. There is no laboratory evidence of HCV infection. In most cases, no further action is required. However, if recent HCV exposure is suspected, a test for HCV RNA (test code 39623) is suggested. For additional information please refer to http://education.[employer]/faq/HWE50a2 (This link is being provided for informational/ educational purposes only.) 08/24/2021 10:4 2 AM EDT us Annelise TEIXEIRA HISTORICAL/NON ORDERABLE LABS Final Result [facility] [address] from Last 3 Months or Most Recently Relevant to Health Maintenance Insurance [facility] STANDARD MEDICARE Care Teams Bit Setter Relationship Specialty Start Date End Date Althea Garvey MD [address] [place] [address] PCP - General Family Medicine 12/19/22
--- OUTSIDE RECORDS SUMMARY | 2025-01-19 17:13 | XMS_ITS | Encounter Summary ---
Author Organization [employer] Address [address] [facility] 7t [place] [address] Care Team Providers Care Game Master Name Role Phone Althea Garvey MD Primary Care Provider [phone] Encounter Details Date Type Department Care Team (Late st Contact Info) Description 06/10/2024 Orders Only [facility] [address] [place], [place] [phone] Althea Garvey MD [address] [place], [place] [phone] Screening for colon cancer (Primary Dx) Social [...] documented as of this encounter Care Teams Game Master Relationship Specialty Start Date End Date Althea Garvey MD [address] [place] [phone] PCP - General Family Medicine 12/19/22 documented as of this encounter
--- OUTSIDE RECORDS SUMMARY | 2025-01-19 17:13 | XMS_ITS | Encounter Summary ---
Author Organization [employer] Address [address] [facility] 7t [place] [address] Care Team Providers Care Rake Operator Name Role Phone Althea Garvey MD Primary Care Provider [phone] Encounter Details Date Type Department Care Team (Late st Contact Info) Description 07/24/2023 Telephone [facility] [address] [place], [place] [phone] Althea Garvey MD [address] [place], [place] [phone] Social History Tobacco Use Types Packs/Day Years [...] documented as of this encounter Care Teams Rake Operator Relationship Specialty Start Date End Date Althea Garvey MD [address] [place] [phone] PCP - General Family Medicine 12/19/22 documented as of this encounter
--- OUTSIDE RECORDS SUMMARY | 2025-01-19 17:13 | XMS_ITS | Clinical Summary ---
Author Organization [facility] Address [address] [place] [address] Phone Care Team Providers Care Scaffolder Name Role Phone Althea Garvey MD Primary Care Provider [phone] Allergies No known active allergies Social History [...] to complete this topic Insurance MEDICAID - [place] Care Teams Scaffolder Relationship Specialty Start Date End Date Althea Garvey MD [address] [place] [phone] PCP - General Septic Technician 05/27/24
--- OUTSIDE RECORDS SUMMARY | 2025-01-19 17:13 | XMS_ITS | Encounter Summary ---
Author Organization [employer] Address 75 [facility] 7t [place] [address] Care Team Providers Care Oil Speculator Name Role Phone Althea Garvey MD Primary Care Provider [phone] Reason for Visit * Reason Onset Date Comments Medication Question 06/10/2024 Call Back Request 06/10/2024 Encounter Details Date Type Department Care Team ([facility] st Contact Info) Description 06/10/2024 Telephone [facility] [address] [place] [address] Althea Garvey MD [address] [place], [place] [phone] Medication Question; Call Back Request Social History [...] can do that again. Contact pt at [phone] documented in this encounter Plan of Treatment Not on file documented as of this encounter Visit Diagnoses Not on filedocumented in this encounter Additional Health Concerns Assessment Noted Time PHQ-9 Depression Total Score: 2 03/24/19 25 1:18 PM EST documented as of this encounter Care Teams Oil Speculator Relationship Specialty Start Date End Date Althea Garvey MD [address] [place] [phone] PCP - General Family Medicine 12/19/22 documented as of this encounter
--- OUTSIDE RECORDS SUMMARY | 2025-01-19 17:13 | XMS_ITS | Encounter Summary ---
Author Organization [employer] Address [address] [facility] 7t [place] [address] Care Team Providers Care Radiologic Technology Teacher Name Role Phone Althea Garvey MD Primary Care Provider [phone] Encounter Details Date Type Department Care Team (Late st Contact Info) Description 01/19/[address] [facility] [address] [place], [place] [phone] Althea Garvey MD [address] [place], [place] [phone] Social History Tobacco Use Types Packs/Day Years [...] t he electric, gas, oil or water [employer] threatened to shut off services in your [...] on file documented as of this encounter Procedures Procedure Name Priority Date/Time Associated Diagnosis Comments BI MAMMOGRAM DIAGNOSTIC TOMOSYNTHESIS ADDED VIEW LEFT Routine 01/19/2025 3:03 PM EST documented in this encounter Results * BI Mammogram Diagnostic Tomosynthesis added left (01/19/2025 3:03 PM EST) Anatomical Region Laterality Modality Breast Left Mammography 01/19/2025 3:03 PM EST Narrative 01/19/2025 3:42 PM EST [facility] [place] [address] Mammography Report Signed Patient: Angela Sánchez MR#: [id number] 2 : 1955 Acct:[id number] Age/Sex: 69 / F ADM Date: 01/19/25 Loc: .MAMMO Attending Dr: Althea Garvey MD Ordering Physician: Althea Garvey Results: 1Negative Date of Service: 01/19/25 Follow Up: 1 Year From Orig inal Mammogram Procedure(s): MM tomosynthesis added views L Accession Number(s): [id number] cc: Althea Garvey Reason For Exam: LT [...] by: Paolo White MD 01/19/2025 03:39 PM [facility] Dictated By: Paolo White MD Signed By: <Electronically signed by Paolo White MD in OV> 01/19/25 1539 DD/ 1503 TD/TT: 01/19/25 1517 Registered Radiographer: Procedure Note Donotuseinterpreter, Image - 01/19/2025 [facility] [address] [place] [address] Mammography Report Signed Patient: Angela Sánchez CMR#: [id number] 2 : 5Acct:[id number] Age/Sex: 69 / FADM Date: 01/19/25 Loc: MAMMO Attending Dr: Althea Garvey MD Ordering Physician: Efraín Garveyults: 1Negative Date of Service: 01/19/25Follow Up: 1 Year From Orig inal Mammogram Procedure(s): MM tomosynthesis added views L Accession Number(s): [id number] cc: Althea Garvey Reason For Exam: LT [...] 01/19/25 1539 DD/ 1503 TD/TT: 01/19/25 1517 Registered Radiographer: Althea Garvey MD IMG BI PROCEDURES Edited Resul t - Final documented in this encounter Visit Diagnoses Not on filedocumented in this encounter Additional Health Concerns Assessment Noted Time PHQ-9 Depression Total Score: 2 03/24/19 25 1:18 PM EST documented as of this encounter Care Teams Radiologic Technology Teacher Relationship Specialty Start Date End Date Althea Garvey MD [address] [place] [phone] PCP - General Family Medicine 12/19/22 documented as of this encounter
== END 2025-01-19 15:02 | disposition home or self-care (01) ==
LOC: HO.MAMMO 15:01
PROVIDERS: PCP General Practice; Visit Provider General Practice
DX: N64.89 Other specified disorders of breast (principal)
CPT/HCPCS: 77061; 77065